=== PATIENT | female | born 1980 | race Caucasian/White ===

== ENCOUNTER 2017-06-20 19:39 | Observation (INO) | payer MEDICARE ==
[~2017-06-20] VITALS: Ht 167.6 cm; Wt 72.7 kg
[2017-06-21 02:18] VITALS: BP 146/94; Ht 167.6 cm; Wt 72.7 kg
[2017-06-21 04:00] VITALS: BP 107/75
[2017-06-21 09:03] VITALS: BP 105/69
[2017-06-21 12:28] VITALS: BP 103/78
[2017-06-21 12:35] LABS: HEMATOCRIT 39.4 % (36.0-48.0); HEMOGLOBIN 13.4 g/dL (12-16); MCV 91.2 fL (80.0-100.0); MEAN PLATELET VOLUME 10.3 fL (7.4-10.4); PLATELET COUNT 194 10x3/uL (130-400); RBC 4.32 10x6/uL (4.00-5.40); RDW 13.8 % (11.5-14.5); WBC 6.5 10x3/uL (4.8-10.8)
[2017-06-21 12:40] LABS: C-REACTIVE PROTEIN 0.6 mg/dL (0.0-0.9); CALC OSMOLALITY 277 mosm/kg (275-300); CARBON DIOXIDE 23.1 mmol/L (21.0-32.0); CHLORIDE - SERUM 106 mmol/L (98-107); CREATININE - SERUM 0.7 mg/dL (0.6-1.3); GLUCOSE 120 mg/dL (74-106); SODIUM 138 mmol/L (136-145); UREA NITROGEN 15 mg/dL (7-18); eGFR NON AFRICAN AMERICAN > 90 mL/min (90-120)
[2017-06-21 14:45] LABS: ERYTHROCYTE SEDIMENTATION RATE 24 mm/hr (0-20)
[2017-06-21 16:53] VITALS: BP 108/69
[2017-06-21 20:00] VITALS: BP 103/68
[2017-06-22] VITALS: BP 107/71
[2017-06-22 04:00] VITALS: BP 106/59
[2017-06-22] MEDS ORDERED: PROCARDIA10 MG PO (08:29)
[2017-06-22] MEDS ORDERED: ASPIRIN81 MG PO (08:29)
[2017-06-22] MEDS ORDERED: DILAUDID4 MG PO (08:30)
[2017-06-22 09:00] VITALS: BP 100/64
--- NOTE | 2017-06-24 07:49 | PRO ---
PATIENT:GAGANDEEP SAMUELS MEDICAL RECORD: [id number] : 78 LOCATION:D.MS Daniel2202 ADMISSION DATE: 06/20/17 PROCEDURE PERFORMED BY: ANIBAL HOLT MD DATE OF PROCEDURE: 06/21/2017 Ms. Samuels is 37-year-old female who was consulted by Dr. Emil Donald for evaluation of a right upper extremity pain, possible RSD and a stellate ganglion block. The patient had a history of trauma to her right upper extremity, moving a couch. The patient developed a compartment syndrome, which was then decompressed surgically by Dr. Emil Donald. This has been an ongoing problem for about 3 months. The patient developed some pain and discomfort and has some mottling to her distal right extremity. The patient states that she has some swelling in that hand and it is mottled and tender to touch. Examination of the extremity was warm to touch, but extremely tender for patient and swollen. The patient had no chronic changes that we could note. The patient relates that her swelling and discomfort really had come on the last few days. The patient was presented to us by Dr. Emil Donald and we were consulted for workup and possible stellate ganglion block under ultrasound guidance. I discussed options with the patient, which was a stellate ganglion block under ultrasound guidance and we included risks and benefits including risk of bleeding, infection, damage underlying structures. We also included risk of Saleem syndrome and phrenic nerve involvement and possible intravascular injection. The patient understands and accepts all benefits and risks. The patient elected to proceed with the procedure. We had the patient moved to the holding area for injection of the block. The patient was monitored with continuous O2 saturation and blood pressures. The patient was given 2 mg of Versed and 2 cc of fentanyl for light sedation. Under ultrasound guidance and Betadine prep, the longus colli muscle was identified. A lateral approach was used in plain ultrasound guidance, approximately 7 mL of 0.25% bupivacaine and 80 mg of Depo-Medrol for a total solution of 9 mL was instilled under ultrasound guidance via 22 gauge echogenic needle anterior to the longus colli muscle. The patient tolerated the procedure well. It should be noted that prior to insertion of the 22 gauge echogenic needle, a skin wheal had been raised with 1% lidocaine, approximately 5 mL. The patient tolerated the procedure well. The patient noted that her pain prior to the procedure was about a 10/10 in the right extremity and had a significant throbbing. The patient related that post-injection about 5 minutes of the throbbing, had decreased markedly in fact had almost managed and that her pain had dropped from a 10/10 to about a 5/10. I will follow up with the patient tomorrow making rounds. We will watch the patient for approximately 20 minutes post-procedure, noted no adverse side effects or complications. The patient was returned back to her room. TRANSINT:[id number] Voice Confirmation ID: [id number] DOCUMENT ID: [id number] ANIBAL HOLT MD at 0749 CC: [id number] DICTATION DATE: 06/21/17 153 ASSISTANT WOMEN'S ROWING COACH: 06/22/17 1556 [facility] IN 06/22/17 [facility] [address] [place] [address]
== END 2017-06-22 12:42 | disposition home or self-care (01) ==
LOC: D.ER 19:39 → EDBD 19:39 → D.MS 22:16 → OBSVTIME 22:16 → D.MS 22:16
PROVIDERS: ADMIT Orthopaedic Surgery
DX: G90.511 Complex regional pain syndrome I of right upper limb (principal)

== ENCOUNTER 2017-06-25 11:47 | Day surgery (SDC) | payer MEDICARE ==
[2017-06-21 02:18] VITALS: BMI 25.8
[~2017-06-25 11:47] MED LIST: ASPIRIN81 MG PO; DILAUDID4 MG PO; PROCARDIA10 MG PO
--- NOTE | 2017-06-25 19:41 | NUR ---
1420 SLING ON RIGHT ARM,
--- NOTE | 2017-06-27 11:46 | PRO ---
PATIENT:GAGANDEEP MICHEL MEDICAL RECORD: [id number] : 78 LOCATION:[facility]ANK ADMISSION DATE: 06/25/17 PROCEDURE PERFORMED BY: ANIBAL HOLT MD DATE OF PROCEDURE: 06/25/2017 Ms. Michel is a 37-year-old female who presents today with RSD of the right upper extremity. The patient was seen in the hospital last Saturday. The patient was referred back to this service by Dr. Emil Donald, who had seen her today in clinic. The patient had a stellate ganglion block on the right side under ultrasound guidance in the hospital last Saturday with excellent results. The patient relates that her hand, which had been a 10/10 pain level, had decreased to 0/10 prior to discharge on Saturday. The patient presented back to Dr. Donald today and complained that her pain had returned; it was 8/10. The patient was sent over to [place] for consult and reevaluation and possible repeat stellate ganglion block on the right upper extremity. The patient presents today, relates that her pain is 8/10 and some mottling of the right hand has returned. Examination demonstrated approximately the same issues she had prior to discharge and prior to the previous stellate ganglion block done on Saturday. The patient relates that she did have improvement of 2 days pain free, and noticed the mottling had decreased also. 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 Risks and benefits were explained to the patient including risk of bleeding, infection, damage to underlying structures, and also potential of anesthetized shoulder and Saleem syndrome including droopiness of the eyelid and/or hoarseness secondary to phrenic nerve involvement. Stellate ganglion block is to be done under ultrasound guidance. The patient understands the risks and elects to proceed with the procedure. The patient was given intranasal Versed 2 mg via nasal atomizer prior to the procedure. The patient was monitored with continuous pulse ox and blood pressure monitoring. Under ultrasound guidance, the right neck was prepped with Betadine. A 30-gauge needle was used to induce a skin wheal. A 25-gauge needle was then introduced for more local anesthetic. A 22-gauge echogenic needle was then used to locate the area above the longus colli muscle and stellate ganglion. Ultrasound pictures were taken, and approximately 8 mL of volume of solution which include 7 mL of bupivacaine 0.25% along with 80 mg Depo-Medrol was then instilled anterior to the longus colli muscle and stellate ganglion area. The patient tolerated the procedure extremely well. The patient relates that her pain was almost zero immediately. The patient did also notice that her shoulder had become a little bit on the numb side after the procedure. It should be noted that the lateral approach was used to the stellate ganglion under ultrasound guidance. The patient is to follow up on , the , at 1:00 for repeat stellate ganglion block and reevaluation. TRANSINT:[id number] Voice Confirmation ID: [id number] DOCUMENT ID: [id number] PROCEDURE NOTE [id number] GAGANDEEP MICHEL FARRELL MD at 1146 CC: [id number] DICTATION DATE: 06/25/17 1409 [employer] ARCHITECT: 06/26/17 0128 [facility] 06/25/17 [id number] [place] [address]
== END 2017-06-25 14:20 | disposition home or self-care (01) ==
LOC: D.OPS 11:47
DX: G90.511 Complex regional pain syndrome I of right upper limb (principal)

== ENCOUNTER 2017-07-23 10:54 | Day surgery (SDC) | payer BC ==
--- NOTE | 2017-07-23 15:01 | NUR ---
1434-PROCEDURE COMPLETE. STATES PAIN IS 0. 1450-DISCHARGE INSTRUCTIONS REVIEWED. 1455-D/C HOME AMBULATORY.
[2017-07-23 15:06] VITALS: BMI 26.7
--- NOTE | 2017-07-24 14:38 | PRO ---
PATIENT:GAGANDEEP SAMUELS MEDICAL RECORD: [id number] : 78 LOCATION:FRANK ADMISSION DATE: 07/23/17 PROCEDURE PERFORMED BY: ANIBAL HOLT MD DATE OF PROCEDURE: 07/23/2017 HISTORY: Ms. Samuels is a 37-year-old female who presented to us by Dr. Emil Donald. The patient has complicated issue of RSD of the right extremity. The patient had trauma to the right extremity moving a couch. The patient at that time had a compartment syndrome which was released surgically by Dr. Emil Donald. The patient has had mottling, pain, tenderness and swelling of the right extremity. The patient had stellate ganglion block while still in the hospital for symptoms. Stellate ganglion block resolved the symptomatology for approximately 12-24 hours on 1st injection. The patient was discharged from hospital at that time and presented as an outpatient for repeat stellate ganglion injection on the right side. The patient had a resolution of approximately 2 weeks following that injection. The patient presents today after approximately 3 weeks of her last right stellate ganglion block complaining that she is starting to have some breakthrough swelling and pain and mottling of her right upper extremity. We elected after discussion to do another stellate ganglion block on the right side and actually after discussing with the patient, we would like to continue with 3 sequential stellate ganglion blocks to see if there is complete resolution of right upper extremity RSD. I felt that after 3 continuous stellate ganglion blocks, if there is no complete resolution and perhaps an evaluation by Dr. Mark Burrell for radiofrequency ablation at that level might be appropriate. Risks and benefits were explained including risk of infection, bleeding, and damage to underlying structures. It should be noted that the patient is currently on no anticoagulation therapy at this time. DESCRIPTION OF PROCEDURE: The patient was placed in the sitting position 65 to 78 degree angle in a supine position with head elevated. Her neck was exposed and using ultrasound guidance for stellate ganglion block, a Betadine prep was used, 1% lidocaine was used as a raise of skin wheal and under ultrasound guidance, a 20-gauge echogenic needle was guided above the longus colli muscle. On 2 separate occasions, 5 mL of 0.25% bupivacaine along with 80 mg of Depo-Medrol was instilled into the space. After the first 5 cc, patient noted not significant changes in her symptomatology. Her pain was 5/10 today. After second injection of 5 mL with 80 mg of Depo-Medrol, the patient did relate complete resolution of her symptoms in the right hand. The patient had no ill side effects. The patient does not have Saleem syndrome and/or brachial plexus involvement. The patient did extremely well. The patient had pain level of 0/10 postinjection. The patient is to follow up in 1 week for repeat right stellate ganglion block under ultrasound guidance. TRANSINT:[id number] Voice Confirmation ID: [id number] DOCUMENT ID: [id number] PROCEDURE NOTE [id number] GAGANDEEP SAMUELS FARRELL MD at 1438 CC: [id number] DICTATION DATE: 07/23/17 1508 REPORTING MANAGER: 07/24/17 0103 [facility] [place] 07/23/[address] [address]
== END 2017-07-23 14:55 | disposition home or self-care (01) ==
LOC: D.OPS 10:54
DX: G90.511 Complex regional pain syndrome I of right upper limb (principal); X50.0XXA Overexertion from strenuous movement or load, initial encounter; Z01.812 Encounter for preprocedural laboratory examination

== ENCOUNTER 2017-07-31 11:45 | Day surgery (SDC) | payer BC ==
--- NOTE | 2017-07-31 13:54 | NUR ---
1155-PATIENT IN ROOM 1230-DR HOLT HERE TO EVALUATE. 1250-CONSENT SIGNED 1300-TIME OUT 1302-PROCEDURE START 1307-PROCEDURE COMPLETE 1330-DISCHARGE INSTRUCTIONS REVIEWED. D/C AMBULATORY PER REQUEST.
--- NOTE | 2017-07-31 13:56 | NUR ---
1230-HISTORY REVIEWED, NO CHANGES FROM LAST WEEK.
[2017-07-31 13:57] VITALS: BMI 26.7
--- NOTE | 2017-08-01 09:37 | PRO ---
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 Emil Donald for a compartment syndrome of her right upper extremity secondary to a trauma when moving a couch. The patient had a surgical decompression of the compartment syndrome in her right upper extremity by Dr. Donald. Post surgery, the patient developed RSD, causalgia type 1 in the right upper extremity. The patient has been seen by this clinic on several occasions for stellate ganglion block under ultrasound guidance. The patient presents today for repeat stellate ganglion block under ultrasound guidance on the right side. The patient relates that her vasospastic component has markedly improved in decreasing in the number of vasospasms she is having during the last week. The patient also relates that the intensity of pain during the vasospasms is also decreased. The patient also noted that she has no current mottling, swelling has decreased, and range of motion has increased since stellate ganglion blocks were started approximately 2 weeks ago. This is the patient's second stellate ganglion block in the right stellate ganglion for her RSD. The patient is very happy with the improvement. The patient presents today for her second in a series of 3 stellate ganglion blocks on the right side. Risks and benefits were explained including risk of bleeding, infection, damage to underlying structures. The patient also was as before cautioned about Saleem syndrome, droopiness of the right side, also some shortness of breath secondary to phrenic nerve involvement, and a shoulder numbness secondary to brachial plexus. The patient consents to procedure and elects to proceed. DESCRIPTION OF PROCEDURE: The patient was placed in sitting position. Under ultrasound guidance, Betadine prep, local anesthetic was used to raise a skin wheal of 1% lidocaine. Under ultrasound guidance, a 22-gauge ultrasound needle was then introduced above the longus colli muscle using lateral approach in line plane. A total of 6 mL of 0.25% bupivacaine along with 80 mg Depo-Medrol was instilled into the stellate ganglia area above the longus colli muscle. The patient tolerated the procedure well. The patient was monitored the entire time during the procedure. The patient suffered no shortness of breath, no shoulder numbness nor any Saleem syndrome. The patient presents for a repeat injection in 1 week and followup for her RSD, upper extremity causalgia type 1. TRANSINT:[id number] Voice Confirmation ID: [id number] DOCUMENT ID: [id number] ANIBAL HOLT MD at 0937 CC: [id number] DICTATION DATE: 07/31/17 1606 [employer]IP[employer] SERVICES SALES REPRESENTATIVE: 08/01/17 0911 [facility] 07/31/[address] [address]
== END 2017-07-31 13:30 | disposition home or self-care (01) ==
LOC: D.OPS 11:45
DX: G90.511 Complex regional pain syndrome I of right upper limb (principal); Z01.812 Encounter for preprocedural laboratory examination

== ENCOUNTER 2017-08-22 08:41 | Inpatient (IN) | payer BC ==
[~2017-08-22] VITALS: Ht 167.6 cm; Wt 77.3 kg
--- NOTE | 2017-08-22 09:40 | NUR ---
RECEIVED TO ROOM 2206 DIRECT ADMIT FROM HOME. SCARS NOTED TO R HAND. BANDAID IN USE TO R THUMB. STATES THAT TIP OF THUMB WAS SURGICALLY REMOVED THIS SUMMER. [place]. STATES THAT SHE ALWAYS HAS A MIDLINE OR PICC WHEN ADMITTED IN HOSPITAL. MESSAGE LEFT FOR ERMELINDA VASCULAR ACCESS NURSE.
[2017-08-22] MEDS ORDERED: HYDROCHLOROTHIA25 MG PO (09:41)
[2017-08-22] MEDS ORDERED: PHENERGAN25 M1 (09:42)
[2017-08-22] MEDS ORDERED: ZOFRAN8 MG PO (09:43)
[2017-08-22 09:47] VITALS: BP 133/99; Ht 167.6 cm; Wt 77.3 kg
--- NOTE | 2017-08-22 12:30 | NUR ---
ERMELINDA, VASCULAR ACCESS NURSE, UNABLE TO PLACE MIDLINE. DR HOLT ON FLOOR STATES HE WILL PLACE IV WHILE PATIENT IS IN OR GETTING BLOCK PLACED.
[2017-08-22 13:41] VITALS: BP 135/102
--- NOTE | 2017-08-22 14:50 | NUR ---
RETURNED TO ROOM FROM OR VIA BED. L IJ PATENT. VOICE HOARSE. INTERSCALENE BLOCK TO L CHEST.
--- NOTE | 2017-08-22 15:15 | NUR ---
COMPLAINING OF SHORTNESS OF BREATH. O2 1L NC APPLIED PER PATIENT REQUEST. O2 SAT 97%.
--- NOTE | 2017-08-22 15:30 | NUR ---
KPAD APPLIED TO L ARM. CONTINUES TO COMPLAIN OF PAIN TO L ARM.
--- NOTE | 2017-08-22 16:00 | NUR ---
COMPLAINING OF PAIN TO L ARM. REQUESTING PAIN MEDICATION. ARUELIO VERMA APN NOTIFIED. STATES SHE WILL SPEAK WITH DR HOLT REGARDING MEDICATION BEING GIVEN BOLUS THROUGH BLOCK.
--- NOTE | 2017-08-22 16:22 | NUR ---
COMPLAINING OF PAIN TO LEFT ARM. DILAUDID GIVEN PO.
--- NOTE | 2017-08-22 17:20 | NUR ---
KPAD NOT WORKING. NEW KPAD PLACED TO L ARM. VISITING WITH FAMILY.
[2017-08-22] MEDS ORDERED: NEURONTIN 300300 MG PO (19:50)
[2017-08-22 20:00] VITALS: BP 151/107
[2017-08-23 00:43] VITALS: BP 133/87
[2017-08-23 04:00] VITALS: BP 109/73
[2017-08-23 04:39] VITALS: BP 104/70
--- NOTE | 2017-08-23 07:00 | NUR ---
REPORT RECIEVED ASSUMED CARE. PATIENT IN BED WITH IV INTACT. NO COMPLAINTS. CALL LIGHT WITHIN REACH.
[2017-08-23 09:30] VITALS: BP 106/76
[2017-08-23 14:13] VITALS: BP 111/71
--- NOTE | 2017-08-23 18:55 | NUR ---
PATIENT IN BED WITH IV INTACT. NO COMPLAINTS. BLOCK INTACT. CALL LIGHT WITHIN REACH.
[2017-08-23 20:00] VITALS: BP 114/73
--- NOTE | 2017-08-23 21:35 | NUR ---
REST IN BED AND WATCH TV.
[2017-08-24] VITALS: BP 104/72
--- NOTE | 2017-08-24 00:54 | NUR ---
PATIENT RESTING IN BED WITH GUEST AT BEDSIDE. PATIENT DENIES NEEDS AT THIS TIME. BED IN LOWEST POSITION AND CALL LIGHT WITHIN REACH. ENCOURAGED THE PATIENT TO CALL IF SHE HAS NEEDS.
--- NOTE | 2017-08-24 03:55 | NUR ---
REST QUIETLY IN BED, EYE CLOSE, CALL LIGHT IN RECH.
[2017-08-24 04:00] VITALS: BP 112/76
[2017-08-24 09:20] VITALS: BP 112/77
[2017-08-24 13:06] VITALS: BP 114/87
--- NOTE | 2017-08-24 17:29 | PRO ---
PATIENT:GAGANDEEP SAMUELS MEDICAL RECORD: [id number] : 78 LOCATION:D.MS Daniel2206 ADMISSION DATE: 08/22/17 PROCEDURE PERFORMED BY: ANIBAL HOLT MD DATE OF PROCEDURE: 08/22/2017 PROCEDURE NOTE BRIEF HISTORY: Ms. Samuels is a 37-year-old female, who is well known to this service. She has been counseled by this service. She was referred by Dr. Emil Donald for a stellate ganglion block on the right side for developing RSD after the patient had a compartment syndrome developed on the right upper extremity. The patient developed RSD post-surgery and has been somewhat responsive to a series of stellate ganglion blocks on the right side. After a series of 3, the patient continues to have rebound RSD, causalgia type 1 and it was discussed with Dr. Donald about bringing the patient in the hospital and doing a continuous catheter with bolus amounts of local anesthetic q. 12h. to see if we could break the patient's RSD cycle. I had discussed with another pain physician about radioablation of the right stellate ganglion nerves, but he related that really no one in the area that he knew was doing those because of the location of the other nerve and vascular structures in the area. After discussion with Dr. Donald, we elected to bring the patient in to do a stellate ganglion catheter under ultrasound guidance and bolus the patient as we said q. 12h. DESCRIPTION OF PROCEDURE: The patient was brought to the holding area after consents were signed and risks and benefits were described to the patient including risk of bleeding, infection, and damage to underlying structures. It should be noted that the patient is currently on no anticoagulation therapy at this time. The patient did not have intravenous access, so it was elected to start a left IJ under ultrasound guidance and sterile conditions for the patient to receive sedation and continued intravenous access on the floor. Right IJ was located with ultrasound guidance and under sterile Betadine prep and sterile drape, a 20-gauge radial arterial catheter was used to cannulate the left IJ under ultrasound guidance and was secured in place with a proper dressing. After the patient received 5 of Versed and 2 of fentanyl, patient was feeling much more relaxed about the upcoming procedure. Under sterile conditions, a right stellate ganglion block was performed. Local anesthetic of 2% lidocaine was used to anesthetize the skin wheal and a 17-gauge Tuohy needle was then used to place into above the longus colli muscle where this stellate ganglion resides. The catheter was then threaded to the Tuohy needle, was located on ultrasound, and was secured in place. A 10 cc bolus of 0.5% bupivacaine with epinephrine marker was then injected into the area above the longus colli muscle and stellate ganglion under ultrasound guidance. The patient developed some hoarseness after the procedure. The patient did not develop Saleem nor did she develop right shoulder numbness. The patient did relate that her pain level with her right extremity that had been 5/10, was now 0/10. Also, it should be noted that the patient had increased warmth in her right arm and hand secondary to vasodilatation secondary to sympathectomy from the ultrasound stellate ganglion block. The patient tolerated the procedure well. The patient was returned to her room where the patient is under the care of Dr. Emil Donald. Our plan is to keep her in for 48 to 72 hours with continuous b.i.d. injection to see how patient's symptoms improve. TRANSINT:[id number] Voice Confirmation ID: [id number] DOCUMENT ID: [id number] PROCEDURE NOTE [id number] GAGANDEEP SAMUELS FARRELL MD at 1729 CC: [id number] DICTATION DATE: 08/22/17 1510 COMPLAINT INVESTIGATOR: 08/23/17 0018 [facility] [place] [id number] [place] [address]
[2017-08-24 18:50] VITALS: BP 113/77
[2017-08-24 20:00] VITALS: BP 119/85
[2017-08-25] VITALS: BP 118/76
[2017-08-25 04:00] VITALS: BP 124/80
--- NOTE | 2017-08-25 07:15 | NUR ---
REPORT RECEIVED, ASSUMED CARE OF PT. RESTING, EASILY AROUSED. L IJ INFUSING ORDERED, DRSG C/D/I. NO NEEDS VOICED AT THIS TIME. BED IN LOWEST POSITION, SIDE RAILS UP X 2, CALL LIGHT WITHIN REACH.
[2017-08-25 08:14] VITALS: BP 116/79
[2017-08-25] MEDS ORDERED: NEURONTIN 300300 MG PO (08:36)
[2017-08-25 12:13] VITALS: BP 114/75
--- NOTE | 2017-08-25 12:50 | NUR ---
PT REFUSED TO REVIEW DISCHARGE PAPERWORK. SIGNS CHART COPIES. PT DISCHARGED TO HOME WITH A FAMILY MEMBER.
--- NOTE | 2017-08-25 13:31 | NUR ---
DISHCARGE PAPERWORK SIGNED AND PT DISCHARGED FROM FLOOR WITH .
== END 2017-08-25 13:31 | disposition home or self-care (01) | DRG 74 ==
LOC: D.SDCHOLD 08:41 → D.MS 08:41
PROVIDERS: ADMIT Orthopaedic Surgery
PROC: 05HM33Z Insertion of Infusion Device into Right Internal Jugular Vein, Percutaneous Approach (ICD-10-PCS; principal; 2017-08-22)
PROC: B543ZZA Ultrasonography of Right Jugular Veins, Guidance (ICD-10-PCS; 2017-08-22)
PROC: 3E0T3BZ Introduction of Anesthetic Agent into Peripheral Nerves and Plexi, Percutaneous Approach (ICD-10-PCS; 2017-08-22)
PROC: 3E0T33Z Introduction of Anti-inflammatory into Peripheral Nerves and Plexi, Percutaneous Approach (ICD-10-PCS; 2017-08-22)
PROC: 05HC33Z Insertion of Infusion Device into Left Basilic Vein, Percutaneous Approach (ICD-10-PCS; 2017-08-22)
PROC: B54NZZA Ultrasonography of Left Upper Extremity Veins, Guidance (ICD-10-PCS; 2017-08-22)
DX: G90.511 Complex regional pain syndrome I of right upper limb (principal)

== ENCOUNTER 2017-09-23 08:47 | Day surgery (SDC) | payer BC ==
[~2017-09-23] VITALS: Ht 167.6 cm; Wt 72.6 kg
[~2017-09-23 08:47] MED LIST changes: +HYDROCHLOROTHIA25 MG PO; +NEURONTIN 300300 MG PO; +PHENERGAN25 M1; +ZOFRAN8 MG PO
[2017-09-23 11:22] VITALS: BP 110/66; Ht 167.6 cm; Wt 72.6 kg
[2017-09-23] MEDS ORDERED: DILAUDID4 MG PO (13:14)
--- NOTE | 2017-09-23 14:47 | OP ---
PATIENT NAME: GAGANDEEP MICHEL MEDICAL RECORD: [id number] :78 LOCATION:D.[facility] ADMISSION DATE: SURGEON: JOANNA LINDQUIST MD DATE OF OPERATION: 09/23/2017 PREOPERATIVE DIAGNOSES: 1. Deformed thumbnail with early onychomycosis. 2. Prior RSD of the right upper extremity. 3. Prior compartment release of the right upper extremity. 4. Status post multiple stellate ganglion blocks for RSD. PROCEDURES: 1. Excision of right thumb nail with ablation of the germinal matrix. 2. Preoperative supraclavicular block for RSD. OPERATIVE SUMMARY IN DETAIL: After obtaining the appropriate preoperative orthopedic surgery consent as well as anesthetic consultation, evaluation and clearance, the patient was brought to the operating room and placed on the operating table in supine position. After adequate sedation was administered and after the patient had a block, a digital block was also performed to prevent further RSD of this thumb. It is of note that the previously placed thumb graft looked great. Unfortunately, given the necrosis of the thumb tip after the compartment syndrome and RSD, the thumb nail itself was in poor condition and had early onychomycosis. The patient asked to have this painful deformed thumbnail removed. After obtaining the appropriate preoperative orthopedic surgical consent as well as anesthetic consultation, evaluation, and clearance, the patient was brought to the operating room and placed on the operating table in supine position. After adequate general anesthesia was administered, digital block was performed. A mosquito was then used to gently slide underneath the nail and release the nail from the residual of the sterile matrix that it was still adhered to and the entire germinal matrix. After removing this, irrigation was then followed by 10% sodium hydroxide solution left on the germinal matrix for the appropriate amount of time. The small cottonoids that were placed on were then removed. The area was copiously irrigated. Sterile bandages were applied. The patient was taken back to outpatient in stable condition. All final needle and sponge counts were correct. TRANSINT:[id number] Voice Confirmation ID: [id number] DOCUMENT ID: [id number] JOANNA LINDQUIST MD at 1447 CC: [id number] DICTATION DATE: 09/23/17 1315 BUSINESS LAWYER: 09/23/17 1337 [facility] [address] [place] [address]
== END 2017-09-23 14:45 | disposition home or self-care (01) ==
LOC: D.OPS 08:47 → D.PAN 11:15 → D.OPS 11:30
DX: L60.0 Ingrowing nail (principal); L60.2 Onychogryphosis; M79.2 Neuralgia and neuritis, unspecified; T79.A0XA Compartment syndrome, unspecified, initial encounter; M79.641 Pain in right hand; I10 Essential (primary) hypertension; Z01.812 Encounter for preprocedural laboratory examination

== ENCOUNTER 2018-03-06 16:28 | Inpatient (IN) | payer OTHER ==
[~2018-03-06] VITALS: Ht 167.6 cm; Wt 78.0 kg
--- NOTE | ~2018-03-06 | CN ---
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 She has a past history of colon cancer. She presented to the Emergency Department with abdominal pain. She was found to have an acute urinary tract infection as well as severe pancreatitis. Subsequent to admission, the patient gave clear evidence of acute metabolic encephalopathy. She had numerous metabolic disturbances. She began to show erratic behavior, inappropriate sexual behavior and agitation. As a result of this, she was briefly transferred to the ICU. She has since been transferred back to the regular medical floor. She is clearing considerably. She had exhibited significant amount of obtundation and confusion over the first 48 hours, but over the last 24 hours has cleared considerably. On exam today, the patient's mood is euthymic. She is pleasant and cooperative, makes good eye contact. Affect is appropriate. Speech is fluent. Content of thought is negative for psychosis. Sensorium is essentially clear. ASSESSMENT: Acute metabolic encephalopathy (subacute delirium) - resolving. RECOMMENDATIONS: 1. No history of previous psychiatric treatment. We will not start routine psychotropic medications at this time. 2. We will follow with you as needed. TRANSINT:[id number] Voice Confirmation ID: [id number] DOCUMENT ID: [id number] FAHAD BARNES III, MD at 1048 CC: [id number] DICTATION DATE: 03/10/18 1217 FOREST WORKER: 03/10/18 1314 [facility] 03/10/18 [address] [place] [address]
[2018-03-06 18:28] LABS: HEMATOCRIT 44.9 % (36.0-48.0); HEMOGLOBIN 15.5 g/dL (12-16); MCH 31.8 pg (26.0-34.0); MCHC 34.5 g/dL (31.0-37.0); MEAN PLATELET VOLUME 10.6 fL (7.4-10.4); PLATELET COUNT 258 10x3/uL (130-400); RBC 4.88 10x6/uL (4.00-5.40); RDW 14.5 % (11.5-14.5); WBC 20.8 10x3/uL (4.8-10.8)
[2018-03-06 19:13] LABS: LYMPHOCYTES 6 % (15-50); NEUTROPHILS 94 % (40-80); PLATELET ESTIMATE NORMAL
[2018-03-06 19:15] LABS: STOMATOCYTES 3+
[2018-03-06 19:21] LABS: ALBUMIN 3.3 g/dL (3.4-5.0); ALKALINE PHOSPHATASE 165 U/L (46-116); ALT (SGPT) 41 U/L (10-68); CALC OSMOLALITY 260 mosm/kg (275-300); CALCIUM 8.9 mg/dL (8.5-10.1); CARBON DIOXIDE 28.1 mmol/L (21.0-32.0); CHLORIDE - SERUM 92 mmol/L (98-107); CREATININE - SERUM 0.7 mg/dL (0.6-1.3); GLUCOSE 137 mg/dL (74-106); POTASSIUM - SERUM 4.1 mmol/L (3.5-5.1); PROTEIN - SERUM 8.1 g/dL (6.4-8.2); SODIUM 129 mmol/L (136-145); UREA NITROGEN 13 mg/dL (7-18); eGFR NON AFRICAN AMERICAN > 90 mL/min (90-120)
[2018-03-06 19:35] LABS: AMYLASE - SERUM 489 U/L (25-115)
[2018-03-06 19:37] LABS: INR 1.08 (0.85-1.17); PROTIME 13.6 SECONDS (11.6-15.0)
[2018-03-06 19:37] LABS: LIPASE 2809 U/L (73-393)
[2018-03-06 19:39] LABS: D-DIMER-QUANTITATIVE 1.51 ug/mLFEU (0.20-0.54)
[2018-03-06 19:54] LABS: APPEARANCE HAZY (CLEAR); BILIRUBIN NEGATIVE (NEGATIVE); COLOR ORANGE (YELLOW); GLUCOSE NEGATIVE (NEGATIVE); KETONE SMALL mg/dL (NEGATIVE); NITRITE POSITIVE (NEGATIVE); PROTEIN 1+ mg/dL (NEGATIVE); UROBILINOGEN NORMAL (NORMAL)
[2018-03-06 19:56] LABS: BACTERIA MANY /hpf (NONE SEEN); EPITHELIAL CELLS 0-5 /hpf (0-5)
[2018-03-06 23:16] LABS: UDS - AMPHET NEGATIVE QUAL (NEGATIVE); UDS - BARB NEGATIVE QUAL (NEGATIVE); UDS - BENZO NEGATIVE QUAL (NEGATIVE); UDS - COCAINE NEGATIVE QUAL (NEGATIVE); UDS - OPIATE POSITIVE QUAL (NEGATIVE); UDS - PCP NEGATIVE QUAL (NEGATIVE); UDS - THC NEGATIVE QUAL (NEGATIVE)
[2018-03-06 23:45] LABS: CKMB 2.2 U/L (0.0-3.6); CREATINE KINASE 271 UL (21-215); TROPONIN-I < 0.017 ng/mL (0.000-0.060)
[2018-03-07] VITALS (10 sets, daily range): BP systolic 129–163; BP diastolic 88–106; Ht 167.6 cm; Wt 78.0 kg
[2018-03-08] VITALS (24 sets, daily range): BP systolic 122–163; BP diastolic 89–108
[2018-03-08 06:27] LABS: ALBUMIN 2.5 g/dL (3.4-5.0); ALKALINE PHOSPHATASE 105 U/L (46-116); CALCIUM 8.3 mg/dL (8.5-10.1); CARBON DIOXIDE 21.1 mmol/L (21.0-32.0); CHLORIDE - SERUM 97 mmol/L (98-107); CREATININE - SERUM 0.6 mg/dL (0.6-1.3); LIPASE 1388 U/L (73-393); PROTEIN - SERUM 6.7 g/dL (6.4-8.2); SODIUM 134 mmol/L (136-145); UREA NITROGEN 11 mg/dL (7-18); eGFR NON AFRICAN AMERICAN > 90 mL/min (90-120)
[2018-03-08 07:17] LABS: BASOPHILS 0.1 % (0-2); EOSINOPHILS 0.3 % (0-7); IMMATURE GRANULOCYTES 1.1 % (0-5); LYMPHOCYTES 10.4 % (15-50); MCH 31.4 pg (26.0-34.0); MCV 92.3 fL (80.0-100.0); MEAN PLATELET VOLUME 11.3 fL (7.4-10.4); MONOCYTES 6.1 % (2-11)
[2018-03-08 07:27] LABS: ALT (SGPT) 29 U/L (10-68); CALC OSMOLALITY 264 mosm/kg (275-300); GLUCOSE 68 mg/dL (74-106)
[2018-03-08 07:32] LABS: HEMATOCRIT 35.9 % (36.0-48.0); HEMOGLOBIN 12.2 g/dL (12-16); PLATELET COUNT 146 10x3/uL (130-400); RBC 3.89 10x6/uL (4.00-5.40); WBC 12.6 10x3/uL (4.8-10.8)
[2018-03-08 19:33] LABS: HCG SERUM NEGATIVE (NEGATIVE)
[2018-03-09] VITALS (10 sets, daily range): BP systolic 127–142; BP diastolic 88–96
[2018-03-09 05:03] LABS: BASOPHILS 0.2 % (0-2); EOSINOPHILS 0.4 % (0-7); HEMATOCRIT 32.1 % (36.0-48.0); HEMOGLOBIN 10.9 g/dL (12-16); IMMATURE GRANULOCYTES 0.5 % (0-5); LYMPHOCYTES 11.8 % (15-50); MCH 32.3 pg (26.0-34.0); MEAN PLATELET VOLUME 12.6 fL (7.4-10.4); MONOCYTES 9.4 % (2-11); NEUTROPHILS 77.7 % (40-80); PLATELET COUNT 155 10x3/uL (130-400); RBC 3.37 10x6/uL (4.00-5.40); RDW 15.4 % (11.5-14.5); WBC 12.1 10x3/uL (4.8-10.8)
[2018-03-09 05:08] LABS: MCV 95.3 fL (80.0-100.0)
[2018-03-09 05:28] LABS: ALKALINE PHOSPHATASE 94 U/L (46-116); CALCIUM 7.7 mg/dL (8.5-10.1); CARBON DIOXIDE 22.7 mmol/L (21.0-32.0); CHLORIDE - SERUM 100 mmol/L (98-107); PROTEIN - SERUM 5.9 g/dL (6.4-8.2); SODIUM 135 mmol/L (136-145); UREA NITROGEN 10 mg/dL (7-18)
[2018-03-09 05:34] LABS: ALT (SGPT) 21 U/L (10-68); CALC OSMOLALITY 266 mosm/kg (275-300); CREATININE - SERUM 0.4 mg/dL (0.6-1.3); LIPASE 2162 U/L (73-393); POTASSIUM - SERUM 4.1 mmol/L (3.5-5.1); eGFR NON AFRICAN AMERICAN > 90 mL/min (90-120)
[2018-03-09 05:35] LABS: GLUCOSE 63 mg/dL (74-106)
[2018-03-10 04:14] VITALS: BP 121/84
[2018-03-10 06:22] LABS: BASOPHILS 0.1 % (0-2); EOSINOPHILS 2.5 % (0-7); HEMATOCRIT 29.7 % (36.0-48.0); HEMOGLOBIN 10.1 g/dL (12-16); IMMATURE GRANULOCYTES 0.5 % (0-5); LYMPHOCYTES 15.6 % (15-50); MCH 31.9 pg (26.0-34.0); MCV 93.7 fL (80.0-100.0); MEAN PLATELET VOLUME 10.8 fL (7.4-10.4); MONOCYTES 14.6 % (2-11); NEUTROPHILS 66.7 % (40-80); PLATELET COUNT 164 10x3/uL (130-400); RBC 3.17 10x6/uL (4.00-5.40); RDW 15.2 % (11.5-14.5); WBC 8.7 10x3/uL (4.8-10.8)
[2018-03-10 06:34] LABS: ALBUMIN 1.9 g/dL (3.4-5.0); ALKALINE PHOSPHATASE 83 U/L (46-116); ALT (SGPT) 19 U/L (10-68); BILIRUBIN - TOTAL 0.57 mg/dL (0.2-1.3); CALC OSMOLALITY 276 mosm/kg (275-300); CALCIUM 7.8 mg/dL (8.5-10.1); CARBON DIOXIDE 25.3 mmol/L (21.0-32.0); CHLORIDE - SERUM 104 mmol/L (98-107); CREATININE - SERUM 0.5 mg/dL (0.6-1.3); GLUCOSE 132 mg/dL (74-106); LIPASE 1435 U/L (73-393); POTASSIUM - SERUM 3.6 mmol/L (3.5-5.1); PROTEIN - SERUM 5.6 g/dL (6.4-8.2); SODIUM 138 mmol/L (136-145); UREA NITROGEN 9 mg/dL (7-18); eGFR NON AFRICAN AMERICAN > 90 mL/min (90-120)
[2018-03-10 09:35] VITALS: BP 122/79
[2018-03-10 12:25] VITALS: BP 135/91
[2018-03-10] MEDS ORDERED: TYLENOL W/CODEI1 TAB PO (12:43)
== END 2018-03-10 13:30 | disposition home or self-care (01) | DRG 438 ==
LOC: D.ER 16:28 → D.ICU 23:23 → D.EDHOLD 23:23 → D.M2 23:23 → D.ICU 03-07 16:44 → D.MS 03-09 18:06
PROVIDERS: Family Medicine; Internal Medicine Nephrology; Nurse Practitioner Family
DX: K85.90 Acute pancreatitis without necrosis or infection, unspecified (principal); G92 Toxic encephalopathy; N39.0 Urinary tract infection, site not specified; E87.1 Hypo-osmolality and hyponatremia; G90.529 Complex regional pain syndrome I of unspecified lower limb; E83.42 Hypomagnesemia; R74.8 Abnormal levels of other serum enzymes